=== PATIENT | female | born 1990 | race Caucasian/White ===

== ENCOUNTER → 2020-03-19 11:49 | Outpatient (ROUT) | payer SELFPAY ==
[2020-03-19 12:09] LABS: Add Manual Diff / Slide Review NO; Basophils Absolute Auto 0 /uL (0-100); Basophils Percent Auto 0.3 % (0-2); Eosinophils Absolute Auto 100 /uL (0-450); Eosinophils Percent Auto 0.9 % (2-4); Hematocrit 37.5 % (36-46); Hemoglobin 12.3 g/dL (12.0-16.0); Lymphocytes Absolute Auto 1400 /uL (1100-4500); Lymphocytes Percent Auto 24.3 % (25-40); Mean Corpuscular HGB Conc 32.8 % (30-36); Mean Corpuscular Hemoglobin 27.6 PG (26-34); Mean Corpuscular Volume 84.1 fL (80-100); Monocytes Absolute Auto 200 /uL (0-900); Neutrophils Absolute Auto 4000 /uL (1500-7000); Neutrophils Percent Auto 70.5 % (50-75); Platelet Count 225 X10^3/uL (150-400); Red Blood Cell Count 4.46 X10^6/uL (4.0-5.2); Red Cell Distribution Width 13.2 % (11.6-14.8); White Blood Cell Count 5.7 X10^3/uL (4.5-11.0)
[2020-03-19 13:27] LABS: Hepatitis B Surface Antigen NEGATIVE s/c (NEGATIVE); Rubella Antibody IgG 26.6 IU/mL (>15)
[2020-03-20 05:08] LABS: RPR Screen Non Reactive (Non Reactive)
== END ==
PROVIDERS: Visit Provider Nurse Practitioner Obstetrics & Gynecology
DX: Z34.90 Encounter for supervision of normal pregnancy, unspecified, unspecified trimester (principal); Z3A.14 14 weeks gestation of pregnancy
CPT/HCPCS: 80055

== ENCOUNTER → 2020-05-03 09:11 | Outpatient (CLI) | payer SELFPAY ==
--- NOTE | 2020-05-03 10:12 | DI.US.S_ITS ---
PROCEDURE: US OB >= 14 WEEKS FETUS INDICATIONS: ANATOMY OUTSIDE/PRIOR DATING DATA: Last menstrual period (LMP): 11/30/2019. LMP-based estimated date of delivery (ANTONIETA): 09/05/2020 . First dating scan (date and location): 05/03/2020 . Estimated date of delivery (ANTONIETA) from first dating scan: 09/22/2019 . TECHNIQUE: Real-time scanning was performed of the fetus, with image documentation and biometric measurements. Endovaginal scanning: No COMPARISON: None. FINDINGS: General: A single living intrauterine gestation is present. Presentation: Breech. Placenta: Placental position is anterior , without previa. Amniotic fluid index: 9.8 cm, normal range is 5-24 cm. heart rate: 149 beats per minute. Maternal cervical canal: 3.5 cm long. Normal lower limit is 2.5 cm. biometrics: Biparietal diameter: 20 weeks 1 day Head circumference: 20 weeks 2 days Abdominal circumference: 20 weeks 1 day Femur length: 19 weeks Estimated gestational age from initial scan: not applicable. Composite gestational age from present scan: 19 weeks 6 days Estimated weight and percentile: 380 g Measurement variability for biometric dating: +/- 7 days from 14 weeks to 15 weeks 6 days gestation, +/- 10 days from 16 weeks to 21 weeks 6 days gestation, +/- 2 weeks from 22 weeks to 27 weeks 6 days gestation, +/- 3 weeks for 28 weeks gestation or later. weight reference: 4500 g or EFW >90/95% is considered macrosomia or large for gestational age. EFW <10% is small for gestational age. EFW 5% or less is considered intra-uterine growth restriction. Anatomic survey: Neuro: Ventricles are non-dilated at less than 10 mm. Cisterna magna is normal at 3-11 mm. Cerebellum is normal in size and morphology. Nuchal skin fold: Normal at less than 6 mm between 14-21 weeks gestational age. Face: Nose and lips, facial profile are normal. Spine: No evidence for spina bifida. Heart: 4-chambered heart is present, with normal ventricular outflow tracts. Solitary intracardiac focus. Diaphragm: Diaphragm is intact. Stomach: Left-sided stomach is present. Kidneys: No hydronephrosis. Normal is less than 5 mm in 2nd trimester, less than 7 mm in 3rd trimester. Cord: 3-vessel cord has orthotopic insertion. Placental cord insertion site 1.8 cm from the placental edge. Bladder: Normal in size. Extremities: All 4 extremities identified. IMPRESSION: 1. 19 week 6 day single living IUP. 2. Echogenic intracardiac focus: 1.4-1.8 fold likelihood of Down syndrome. If isolated finding, consider aneuploidy screening with cell-free DNA. If aneuploidy screen is negative, no further evaluation needed. Anatomic survey otherwise is normal. 3. Marginal cord insertion site 1.8 cm from the placental margin. Dictated by: Ricardo Stone [facility] Interpreted: Charles Sawyer MD on 05/03/2020 at 12:59 Approved by: Charles Sawyer M.D. on 05/03/2020 at 14:08
== END ==
PROVIDERS: Referring Provider Nurse Practitioner Obstetrics & Gynecology; Visit Provider Nurse Practitioner Obstetrics & Gynecology
DX: Z36.89 Encounter for other specified antenatal screening (principal); Z3A.19 19 weeks gestation of pregnancy
CPT/HCPCS: 76811

== ENCOUNTER → 2020-06-29 18:20 | Outpatient (ROUT) | payer SELFPAY ==
[2020-06-29 21:18] LABS: Hematocrit 34.6 % (36-46); Hemoglobin 11.4 g/dL (12.0-16.0)
[2020-06-29 21:20] LABS: GTT (PREG) 1 Hour PP 50gm Dose 25 mg/dL (76-139)
== END ==
PROVIDERS: Visit Provider Nurse Practitioner Obstetrics & Gynecology
DX: Z34.90 Encounter for supervision of normal pregnancy, unspecified, unspecified trimester (principal); Z3A.26 26 weeks gestation of pregnancy
CPT/HCPCS: 82950; 85014; 85018; 86850; 86900; 86901

== ENCOUNTER → 2020-08-19 12:11 | Outpatient (ROUT) | payer SELFPAY | PROVIDERS: Visit Provider Nurse Practitioner Obstetrics & Gynecology | DX: Z34.90 Encounter for supervision of normal pregnancy, unspecified, unspecified trimester (principal); Z36.85 Encounter for antenatal screening for Streptococcus B; Z3A.36 36 weeks gestation of pregnancy | CPT/HCPCS: 87081; 87147 ==

== ENCOUNTER 2020-08-28 17:50 | Inpatient (IN) | payer SELFPAY ==
--- NOTE | 2020-08-28 17:57 | PM.OBHP.1 ---
OB HPI Date/Time Date of admission: 08/28/20 Date Patient Seen: 08/28/20 Time Patient Seen: 17:57 History of Present Condition Chief complaint: LABOR : 6 Para: 3 Estimated Date of Delivery: 09/15/20 Estimated Gestational Age (weeks): 37.3 Narrative: Linda Rico is a 29 year old female @ [id number] by 12 wk US who presents for evaluation of labor. Is GBS positive and has a history of rapid labors. Has been feeling irregular contractions all day, that strengthened about 1 hours ago and are 5-6 minutes apart. +FM, though less than normal. No vaginal bleeding or leaking of fluid. Uncomplicated care w/ CNM. Her and mother are present and supportive. History of Present care: good care, initiated at week # (12), number of visits (8) and pounds weight gain (18) Dating criteria: based on 1st trimester US only Ultrasounds: normal mid trimester US Obstetrical complications: none Medical complications: none Preadmission Labs Blood type: A (+) positive -: Antibody screen: negative, GBS status: positive, HBsAG: negative and RPR/VDLR: negative -: Rubella: immune HCAB: negative Cell-free DNA: Negative- male 1 hr GTT: 85 Prior (ies) History: 01/27/2012: NSVB @ 40wks, epidural, female, 6#13oz, no complications 02/11/2013: SAB @ 9wks 03/13/2016: NSVB @ 38wks, epidural, male, 5#9oz, no complications 12/12/2016: SAB @ 5wks 01/31/2018: NSVB@ 38wks, no medication, precip, male, 7#6oz, no complications Evaluation Evaluation Baseline heart rate: 145 Variability: Moderate (11-25) monitor accelerations: Present Monitor Decelerations: Absent Contraction Frequency (minutes): 3 Uterine Contraction Intensity: Moderate Category of Tracing: Reactive Status: Category l Comments: CE deferred d/t regular contraction pattern. [facility] Surgical History (Updated 08/28/20 @ 18:08 by Bailey Dorsey CNM) History of tonsillectomy Family History (Updated 08/28/20 @ 18:09 by Bailey Dorsey CNM) Mother Hypothyroid Social History (Updated 08/28/20 @ 18:09 by Bailey Dorsey CNM) marital status: number of children: 3 household members: spouse and children lives independently: Yes caregiver/support person: No housing: house education level: high school current occupational exposures/hazards: No Meds Home Medications and Allergies Allergies Allergy/AdvReac Type Severity Reaction Status Date / Time No Known Drug Allergies Allergy Verified 08/28/20 18:03 Review of Systems Review of Systems ROS: Yes unobtainable due to mental condition Exam Vital Signs (past 8 hours): BP 110/68mmHg, HR 95bpm, T 97.6F Temporal Chest Chest: normal inspection of the chest Resp Auscultation: clear to auscultation bilaterally Cardio Rate: regular rate Rhythm: regular rhythm Heart Sounds: S1 normal and S2 normal Presentation: vertex Objective Labs Result Diagrams: 08/28/20 18:10 Assessment and Plan Assessment and Plan Assessment and Plan narrative: A: Term multipara Early labor w/ hx of precipitous labor GBS prophylaxis indicated Cat I FHR P: Admit, routine labor orders w/ PCN for GBS prophylaxis. May switch to IA. Labor support PRN. Reassess in 4 hours or sooner.
[2020-08-28 18:33] LABS: Add Manual Diff / Slide Review NO; Basophils Absolute Auto 100 /uL (0-100); Basophils Percent Auto 0.6 % (0-2); Eosinophils Absolute Auto 0 /uL (0-450); Eosinophils Percent Auto 0.5 % (2-4); Hematocrit 37.5 % (36-46); Hemoglobin 12.3 g/dL (12.0-16.0); Lymphocytes Absolute Auto 2700 /uL (1100-4500); Lymphocytes Percent Auto 29.4 % (25-40); Mean Corpuscular HGB Conc 32.8 % (30-36); Mean Corpuscular Hemoglobin 27.8 PG (26-34); Mean Corpuscular Volume 84.7 fL (80-100); Monocytes Absolute Auto 500 /uL (0-900); Monocytes Percent Auto 5.5 % (3-14); Neutrophils Absolute Auto 6000 /uL (1500-7000); Platelet Count 196 X10^3/uL (150-400); Red Blood Cell Count 4.43 X10^6/uL (4.0-5.2); Red Cell Distribution Width 13.4 % (11.6-14.8); White Blood Cell Count 9.3 X10^3/uL (4.5-11.0)
[2020-08-28] MEDS: PENICILLIN G POTASSIUM 5,000,000 UNIT in DEXTROSE 5% IN WATER 250 ML IV (18:45)
[2020-08-28 19:21] LABS: COVID19 - ADMIT (NP swab/PCR) Negative (Negative)
[2020-08-28 21:07] VITALS: BP 101/55
[2020-08-28] MEDS: PENICILLIN G POTASSIUM 3,000,000 UNIT/50 ML FROZ.PIGGY 100 UNIT IV (22:50)
[2020-08-29] MEDS: PENICILLIN G POTASSIUM 3,000,000 UNIT/50 ML FROZ.PIGGY 100 UNIT IV ×2 (03:10→07:28)
--- NOTE | 2020-08-29 05:22 | PM.OBPNLAB ---
Date/Time Date Patient Seen: 08/29/20 Time Patient Seen: 02:05 Pain Control Comments: Laboring well without medication. Now adequately treated for GBS prophylaxis. Agreeable to AROM if no advanced dilation. VS: BP 103/60mmHg, HR 89bpm, T 36.4C Temporal Pelvic Exam Dilation (cm): 4 Effacement (%): 80 station: -1 Amniotic membrane status: Ruptured (AROM) Comments: clear fluid Contractions Contractions on admission: regular Monitor mode: External Contraction frequency (min): 4 Contraction duration (min): 1 Contraction pattern: Regular Contraction intensity: Moderate Status status: Category l Heart Rate Baseline: 135 Comments: FHR remains reassuring by IA Assessment and Plan Assessment: active labor Plan: continuous present management Comments: Continue intermittent auscultation. Labor support, PRN. Reassess in 4 hours or sooner, PRN.
--- NOTE | 2020-08-29 05:27 | PM.OBPNLAB ---
Date/Time Date Patient Seen: 08/29/20 Time Patient Seen: 05:20 Pain Control Comments: Linda continues to labor well without medication. Has tried the tub and CUB, now feeling spontaneous urge to push. Pushed spontaneously through 3 contractions prior to exam. Pelvic Exam Dilation (cm): 5 Effacement (%): 80 station: 0 Amniotic membrane status: Ruptured (AROM) Comments: Continues to leak clear fluid Contractions Monitor mode: External Contraction frequency (min): 4 Contraction pattern: Regular Contraction intensity: Moderate Status Heart Rate Baseline: 135 Comments: FHR remains reassuring by IA Assessment and Plan Assessment: active labor Plan: begin patient augmentation Comments: Explained amount of cervix remaining and recommend she NOT push at this time. Recommend pitocin augmentation, per protocol #1, patient in agreement. Continue labor support. Reassess in 4 hours or sooner, PRN.
[2020-08-29] MEDS: OXYTOCIN PREMIX 30 UNIT/500 ML PLAST..BAG IV (06:09)
--- NOTE | 2020-08-29 08:22 | PM.OBPRVD ---
Labor & Delivery Delivery date: 08/29/20 Intrapartal Events: None Cervical ripening method: none Induction method: none Delivery augmentation: rupture of membranes and pitocin Delivery monitor: external FHT and external uterine Route of delivery: Episiotomy description: None L&D Laceration Description: None Estimated blood loss (mL): 100 Anesthesia Type: None (nitrous oxide) Narrative: Linda'manjinder labor progressed rapidly with pitocin augmentation, max dose of 5mu/min. Coaching to slow maternal pushing led to a NSVB of a vigorous baby boy in LEE position over an intact perineum. There was no nuchal cord and shoulders delivered easily without additional maneuvers. was placed on maternal abdomen for drying and skin to skin. Remaining 30 units of pitocin in 500mL LR was increased to 200mL/hr for AMTSL. At 60 seconds, the cord was double clamped by CNM and cut by FOB, followed by spontaneous, Schultze delivery of an apparently intact placenta, membranes and 3VC. F[place]ud was immediately firm and bleeding minimal. QBL 100mL. Both mother and baby stable and skin to skin as I left the room. Baby 1: Infant gender: Male Presentation: vertex Position: Right Occiput Anterior Placenta delivery description: Spontaneous Cord Vessel Description: 3 Vessels score (1 min): 8 score (5 min): 9 weight: 2.745 kg Plan for aftercare: Routine care
--- NOTE | 2020-08-29 09:11 | PM.OBDS.1 ---
Discharge Providers Provider Date of admission: 08/28/20 17:50 Discharge Date: 08/29/20 Consults: 08/30/20 08:17 Consult to [facility] Machine Operator Routine Comment: Discharge provider: Bailey Dorsey CNM Summary Hospital Course Date Patient Seen: 08/29/20 Time Patient Seen: 14:00 Diagnoses: Normal, vaginal (O80.0) Hospital Course: Patient is voiding, ambulating and independently and is eager for early discharge to home. Minimal pain well controlled w/ a single dose of Toradol. Tolerating a general diet. Bleeding is minimal w/ occasional gushes w/ , no clots. is present and supportive. Peripartum Data Infant Delivery Method: Natural Vaginal Laceration Description: None complications: none 1: Gender: Male Disposition of : home Discharge Diagnosis (1) Encounter for full-term uncomplicated delivery: Start Date: 08/29/20 Start Time: 08:01 Status: Acute Status at Discharge Cognitive/behavioral status at discharge: calm Functional status at discharge: independent ambulation Overall status at discharge: patient is progressing back to baseline Time Spent with Patient Time attestation: Total time spent providing and/or coordinating discharge services: Time spent: Less than 30 minutes Specific discharge activities: education Objective Labs Result Diagrams: 08/28/20 18:10 Labs: Laboratory Results - last 24 hr 08/28/20 08/28/20 08/28/20 18:10 18:10 18:10 WBC 9.3 RBC 4.43 Hgb 12.3 Hct 37.5 MCV 84.7 MCH 27.8 MCHC 32.8 RDW 13.4 Plt Count 196 Neut % (Auto) 64.0 Lymph % (Auto) 29.4 [place] % (Auto) 5.5 Eos % (Auto) 0.5 L Baso % (Auto) 0.6 Neut # (Auto) 6000 Lymph # (Auto) 2700 [place] # (Auto) 500 Eos # (Auto) 0 Baso # (Auto) 100 SARS-CoV-2 (PCR) Negative Blood Type A Positive Antibody Screen Negative Exam Vital Signs (past 8 hours): BP 96/55mmHg, HR 63bpm, T 37.2F Temporal Other: FF@ u-1, lochia light, no clots, perineu intact Discharge Plan Discharge Plan Patient Disposition: Home Discharge orders & Medications Prescriptions: New ibuprofen 600 mg Tablet 600 mg PO Q6HR PRN (Reason: Pain, Mild (1-3)) 14 Days Qty: 60 RF: 0 Follow up/Referrals: Bailey Dorsey CNM [Advanced Platform Worker] - (Follow-up 09/12/20 @ 2:45pm by Telehealth Follow-up 10/10/20 @ 11:00am in office) Diet/Activity/Treatments Diet: Regular Activity: pelvic rest x 6 weeks Skin/Wound/Dressing Care Report to your healthcare provider any signs of infection, such as:: chills, fever, increased pain, unusual drainage and unusual redness Visit Report/Discharge Packet Instructions: DI for Depression Stand Alone Forms: Discharge: Care
[2020-08-29] MEDS: KETOROLAC 30 MG/ML VIAL IV (09:55)
[2020-08-29 13:55] VITALS: BP 101/55; PULSE 63; RESP 16; TEMP 37.2
[2020-08-29] MEDS: LANOLIN OINT 7 GM 1 APPLIC TOP (15:31)
[2020-08-29] MEDS: DERMOPLAST SPRAY 20% 60 ML 1 SPRAY TOP (15:31)
[2020-08-29 15:33] VITALS: TEMP 36.9
[2020-08-29] MEDS: IBUPROFEN 600 MG TABLET PO (15:33)
== END 2020-08-29 16:15 | disposition home or self-care (01) | DRG 807 ==
PROVIDERS: Admitting Provider Nurse Practitioner Obstetrics & Gynecology; Referring Provider Nurse Practitioner Obstetrics & Gynecology; Visit Provider Nurse Practitioner Obstetrics & Gynecology
DX: O99.824 Streptococcus B carrier state complicating childbirth (principal); Z37.0 Single live birth; Z3A.37 37 weeks gestation of pregnancy; Z20.822 Contact with and (suspected) exposure to COVID-19
CPT/HCPCS: 36415; 59050; 85025; 86850; 86900; 86901; 87635; C9803; G0379; J1885; J2540; J2590

== ENCOUNTER 2020-11-27 07:15 | Emergency (ER) | payer SELFPAY ==
[2020-11-27] VITALS (11 sets, daily range): BP systolic 96–119; BP diastolic 55–76; PULSE 86–113; RESP 11–24; TEMP 36.1; O2SAT 97–100; BMI 18.8
--- NOTE | 2020-11-27 07:39 | DI.CT.S_ITS ---
PROCEDURE: CT ABDOMEN PELVIS W CON INDICATIONS: RLQ pain TECHNIQUE: After the administration of intravenous contrast, axial sections acquired from the lung bases to the pubic symphysis. Coronal and sagittal reformats were performed. For radiation dose reduction, the following was used: automated exposure control, adjustment of mA and/or kV according to patient size. COMPARISON: None. FINDINGS: Image quality: Excellent. Lung bases: Unremarkable. Heart: No significant findings. ABDOMEN: Liver: Unremarkable. Gallbladder: Unremarkable Biliary ducts: Unremarkable. Pancreas: Unremarkable. Spleen: Unremarkable. Adrenal Glands: Unremarkable. Kidneys and Ureters: Right superior pole simple cyst. Kidneys are otherwise unremarkable. Ureters are normal in course and caliber. Stomach and Bowel: Stomach is nondistended. Small bowel is unremarkable without evidence of obstruction. No focal wall thickening. The appendix is not definitely identified. No secondary signs of inflammation within the right lower quadrant to suggest appendicitis. Fluid is noted throughout the colon. The there is subtle fatty infiltration along the left colon. Peritoneum: Trace amount of simple pelvic free fluid.. No free air. Ventral Wall: No hernias. Abdominal Nodes: No retroperitoneal or mesenteric adenopathy by size criteria. Vessels: Aorta and inferior vena cava are normal in size. Prominence of the gonadal veins bilaterally measuring up to 8 millimeters on the left. There is prominent intra and periuterine vessels. PELVIS: Pelvic Organs: The uterus is slightly enlarged. Simple appearing ovarian follicles/cysts. The largest on the right measures up to 2.1 centimeters in greatest diameter. Bladder: Nondistended limiting evaluation. Pelvic Nodes: No enlarged lymph nodes. Miscellaneous: No hernias are seen. Bones: Unremarkable. IMPRESSION: Fluid-filled colon with inflammation surrounding the left colon concerning for colitis. Although the appendix is not definitely visualized on today's examination. No secondary signs of appendicitis. Small amount of simple fluid pelvis which may be physiologic. Multiple anterior uterine and periuterine vessels with enlargement of the gonadal veins and slight increased size of the uterus may be due to recent . Additional etiologies such as pelvic congestion syndrome not excluded. Consider further evaluation with pelvic ultrasound if clinically warranted. Dictated by: Parish Gonzalez D.O. on 11/27/2020 at 8:10 Approved by: Parish Gonzalez D.O. on 11/27/2020 at 8:22
--- NOTE | 2020-11-27 07:44 | ED.ABDPAIN ---
HPI - Abdominal Pain General Chief Complaint: Abdominal Pain Stated Complaint: Stomach pain/ vomitting Time Seen by Provider: 11/27/20 07:23 Source: patient Mode of arrival: Ambulatory Limitations: no limitations History of Present Illness HPI narrative: Patient is a 30-year-old female who presents with abdominal pain ongoing for last 2 days. She says it has sort of been all over but now is more in the right side. This morning she had an episode diarrhea and 1 of vomiting. She denies any back pain no fever or chills. She says it does get sharp at times. It is nonradiating. She had baby in August. She is formula feeding. Vaginal delivery no complications. Quality: sharp Radiation: none Migration to: RLQ Related Data Previous Rx's Medication Instructions Recorded ondansetron 4 mg disintegrating 4 mg PO Q8H PRN #10 tab 11/27/20 tablet Allergies Allergy/AdvReac Type Severity Reaction Status Date / Time No Known Drug Allergies Allergy Verified 08/28/20 18:03 Review of Systems Review of Systems Narrative: GENERAL: Denies chills, fatigue, malaise, fever, sweats, travel HEENT: Denies sinus pain, ear pain, sore throat, difficulty swallowing, neck pain RESPIRATORY: Denies dyspnea, cough, wheezing, hemoptysis, sputum. CARDIOVASCULAR: Denies chest pain, palpitations, orthopnea, edema GASTROINTESTINAL: See HPI : Denies dysuria, frequency, incontinence, hematuria, urinary retention, flank pain. MUSCULOSKELETAL: Denies weakness, joint pain, or bony pain SKIN: No rash, no erythema, no pruritus NEUROLOGIC: Denies weakness, dizziness, headache, numbness, change in speech, confusion PSYCHIATRIC: No concerning psychosocial issues. 12 point review of systems is negative except for those stated above and HPI Patient History Surgical History (Updated 08/28/20 @ 18:08 by Bailey Dorsey CNM) History of tonsillectomy Family History (Updated 08/28/20 @ 18:09 by Bailey Dorsey CNM) Mother Hypothyroid Social History (Updated 08/28/20 @ 18:09 by Bailey Dorsey CNM) marital status: number of children: 3 household members: spouse and children lives independently: Yes caregiver/support person: No housing: house education level: high school current occupational exposures/hazards: No Smoking Status: Never smoker Smoking Status: Never smoker alcohol intake frequency: a few times a month Substance Use Type: does not use Exam Initial Vital Signs Initial Vital Signs: Vital Signs Temperature 97 F L 11/27/20 07:22 Pulse Rate 113 H 11/27/20 07:22 Respiratory Rate 18 11/27/20 07:22 Blood Pressure 119/76 11/27/20 07:22 Pulse Oximetry 98 11/27/20 07:22 GENERAL: Well-appearing, well-nourished and in no acute distress. HEENT: Head atraumatic,EOMI, pupils reactive, face symmetric, moist mucous membranes CARDIOVASCULAR: Regular rate and rhythm without murmurs, rubs or gallops. RESPIRATORY: Breath sounds equal bilaterally, no wheezes rales or rhonchi. ABDOMEN: Soft, mild tenderness in right lower quadrant some tenderness in right upper quadrant no guarding or rebound no distention : No CVA tenderness EXTREMITIES: Normal range of motion, no clubbing or edema. Neurovascularly intact NEUROLOGICAL: Alert and oriented x4.Normal gait and speech. SKIN: Warm, dry, no laceration, no petechiae, no rashes or lesions. Course Orders Ordered: ED Orders 11/27/20 07:26 Complete Blood Count AUTO DIFF Stat Comprehensive Metabolic Panel Stat Lipase Stat 11/27/20 07:39 CT abdomen pelvis w con Stat Discontinued Medications Sodium Chloride (Normal Saline 0.9%) 1,000 mls @ 1,000 mls/hr IV CONT MARIA TERESA Last Infusion: 11/27/20 09:08 Dose: 0 mls/hr Documented by: Admin: 11/27/20 07:49 Dose: 1,000 mls/hr Documented by: ANTWON Ketorolac Tromethamine (Ketorolac 30 Mg/Ml Vial) 30 mg IV NOW ONE Stop: 11/27/20 07:40 Last Admin: 11/27/20 07:49 Dose: 30 mg Documented by: ANTWON Vital Signs Vital signs: Vital Signs - 8 hr 11/27/20 07:22 11/27/20 07:31 11/27/20 07:54 Temperature 97 F L Pulse Rate 113 H 100 H 93 H Respiratory Rate 18 24 21 Blood Pressure 119/76 100/62 Pulse Oximetry 98 99 99 11/27/20 08:00 11/27/20 08:33 11/27/20 09:00 Temperature Pulse Rate 93 H 106 H 95 H Respiratory Rate 16 17 15 Blood Pressure 96/55 L Pulse Oximetry 100 100 100 11/27/20 09:08 11/27/20 09:30 11/27/20 10:00 Temperature Pulse Rate 94 H 89 89 Respiratory Rate 16 16 17 Blood Pressure 99/63 101/61 Pulse Oximetry 100 98 98 11/27/20 10:04 11/27/20 10:30 Temperature Pulse Rate 92 H 86 Respiratory Rate 21 11 L Blood Pressure 102/58 L 101/60 Pulse Oximetry 99 97 MDM - Abdominal Pain Lab Data Result diagrams: 11/27/20 07:26 11/27/20 07:26 Labs: Lab Results 11/27/20 11/27/20 Range/Units 07:26 07:26 WBC 7.3 (4.5-11.0) X10^3/uL RBC 4.94 (4.0-5.2) X10^6/uL Hgb 13.3 (12.0-16.0) g/dL Hct 41.9 (36-46) % MCV 84.8 (80-100) fL MCH 27.0 (26-34) PG MCHC 31.8 (30-36) % RDW 14.0 (11.6-14.8) % Plt Count 287 (150-400) X10^3/uL Neut % (Auto) 61.8 (50-75) % Lymph % (Auto) 31.3 (25-40) % [place] % (Auto) 5.2 (3-14) % Eos % (Auto) 0.9 L (2-4) % Baso % (Auto) 0.8 (0-2) % Neut # (Auto) 4500 (6439-4607) /uL Lymph # (Auto) 2300 (6929-2300) /uL [place] # (Auto) 400 (0-900) /uL Eos # (Auto) 100 (0-450) /uL Baso # (Auto) 100 (0-100) /uL Sodium 141 (137-145) mmol/L Potassium 3.6 (3.4-5.1) mmol/L Chloride 103 (98-107) mmol/L Carbon Dioxide 27 (22-32) mmol/L BUN 17 (7-17) mg/dL Creatinine 0.79 (0.52-1.04) mg/dL Estimated GFR > 60.0 (>60) mL/min BUN/Creatinine Ratio 21.5 (6-22) Glucose 111 H (70-100) mg/dL Calcium 9.5 (8.4-10.2) mg/dL Total Bilirubin 0.5 (0.2-1.3) mg/dL AST 34 (14-36) IU/L ALT 28 (<35) IU/L Alkaline Phosphatase 73 (38-126) U/L Total Protein 7.7 (6.3-8.2) g/dL Albumin 4.8 (3.5-5.0) g/dL Globulin 2.9 (1.7-4.1) g/dL Albumin/Globulin Ratio 1.7 (1.0-2.8) Lipase 64 (23-300) U/L Point of care testing: Point of Care Testing Test Results Negative Urine Dip Bedside Urine Glucose Negative Bedside Urine Bilirubin - Negative Bedside Urine Ketone - Negative Urine Specific [place] 1.030 Bedside Urine Occult Blood - Negative Bedside Urine pH 5.5 Bedside Urine Protein - Negative Bedside Urine Urobilinogen - Negative Bedside Urine Nitrite - Negative Bedside Urine Leukocytes - Negative Esterase Imaging Data CT scan - abdomen/pelvis: Radiologist's Impression: PROCEDURE:? CT ABDOMEN PELVIS W CON ? INDICATIONS:? RLQ? pain ? TECHNIQUE:? After the administration of intravenous contrast, axial sections acquired from the lung bases to the pubic symphysis.? Coronal and sagittal reformats were performed.? For radiation dose reduction, the following was used:? automated exposure control, adjustment of mA and/or kV according to patient size.? ? COMPARISON:? None. ? FINDINGS:? Image quality:? Excellent.? ? Lung bases:? Unremarkable. Heart:? No significant findings. ? ABDOMEN: Liver:? Unremarkable.? ? Gallbladder:? Unremarkable Biliary ducts:? Unremarkable.? ? Pancreas:? Unremarkable.? ? Spleen:? Unremarkable.? ? Adrenal Glands:? Unremarkable.? ? Kidneys and Ureters:? Right superior pole simple cyst.? Kidneys are otherwise unremarkable.? Ureters are normal in course and caliber. ? Stomach and Bowel:? Stomach is nondistended.? Small bowel is unremarkable without evidence of obstruction.? No focal wall thickening.? The appendix is not definitely identified.? No secondary signs of inflammation within the right lower quadrant to suggest appendicitis.? Fluid is noted throughout the colon.? The there is subtle fatty infiltration along the left colon. ? Peritoneum:? Trace amount of simple pelvic free fluid..? No free air.? ? Ventral Wall: ? No hernias.? Abdominal Nodes:? No retroperitoneal or mesenteric adenopathy by size criteria.? Vessels:? Aorta and inferior vena cava are normal in size.? Prominence of the gonadal veins bilaterally measuring up to 8 millimeters on the left.? There is prominent intra and periuterine vessels.? ? PELVIS: Pelvic Organs:? The uterus is slightly enlarged.? Simple appearing ovarian follicles/cysts.? The largest on the right measures up to 2.1 centimeters in greatest diameter. Bladder:? Nondistended limiting evaluation. Pelvic Nodes: No enlarged lymph nodes.? Miscellaneous: No hernias are seen. ? ? ? Bones:? Unremarkable.? IMPRESSION:? ? Fluid-filled colon with inflammation surrounding the left colon concerning for colitis.? Although the appendix is not definitely visualized on today's examination.? No secondary signs of appendicitis. ? Small amount of simple fluid pelvis which may be physiologic. ? Multiple anterior uterine and periuterine vessels with enlargement of the gonadal veins and slight increased size of the uterus may be due to recent .? Additional etiologies such as pelvic congestion syndrome not excluded.? Consider further evaluation with pelvic ultrasound if clinically warranted.? ? ? Dictated by: Parish Gonzalez D.O. on 11/27/2020 at 8:10 ? ? MDM Narrative Medical decision making narrative: Patient is having abdominal discomfort on the right side with but multiple other places as well. She did have 1 episode of diarrhea and 1 episode of vomiting today but pain and comes have been ongoing for about 2 days. Blood work is overall reassuring. CT shows colitis and no evidence of appendicitis. CT is also confirmatory a recent . We also did discuss the possible ovarian cyst however signs and symptoms not consistent with ovarian etiology. Certainly no concern for ovarian torsion at this time pain is really upper in her [place] point area. At this time she is feeling but better after medication. Recommend supportive care at this time and return if needed. Discharge Plan Departure Patient Disposition: Home Clinical Impression: Gastroenteritis Instructions: DI for Viral Gastroenteritis -- Adult Activity Restrictions/Additional Instructions: *You have been diagnosed with gastroenteritis *What to do: At this time increase fluid intake with Gatorade or Gatorade like product. May eat as tolerated. *Continue to take medications as directed Zofran 4 mg every 8 hours if needed for nausea or vomiting *Follow up with your primary care provider in 2-3 days *Return to ER if you should have persistent vomiting increasing abdominal or any new, worsening or concerning symptoms Prescriptions: New ondansetron 4 mg tablet,disintegrating 4 mg PO Q8H PRN (Reason: nausea and vomiting) Qty: 10 RF: 0
[2020-11-27 07:45] LABS: Add Manual Diff / Slide Review NO; Basophils Absolute Auto 100 /uL (0-100); Basophils Percent Auto 0.8 % (0-2); Eosinophils Absolute Auto 100 /uL (0-450); Eosinophils Percent Auto 0.9 % (2-4); Hematocrit 41.9 % (36-46); Hemoglobin 13.3 g/dL (12.0-16.0); Lymphocytes Absolute Auto 2300 /uL (1100-4500); Lymphocytes Percent Auto 31.3 % (25-40); Mean Corpuscular HGB Conc 31.8 % (30-36); Mean Corpuscular Volume 84.8 fL (80-100); Monocytes Absolute Auto 400 /uL (0-900); Monocytes Percent Auto 5.2 % (3-14); Neutrophils Absolute Auto 4500 /uL (1500-7000); Neutrophils Percent Auto 61.8 % (50-75); Platelet Count 287 X10^3/uL (150-400); Red Blood Cell Count 4.94 X10^6/uL (4.0-5.2); White Blood Cell Count 7.3 X10^3/uL (4.5-11.0)
[2020-11-27] MEDS: KETOROLAC 30 MG/ML VIAL IV (07:49)
[2020-11-27] MEDS: SODIUM CHLORIDE 0.9% 1,000 ML 1000 ML IV (07:49)
[2020-11-27 08:01] LABS: Alanine Aminotransferase 28 IU/L (<35); Albumin 4.8 g/dL (3.5-5.0); Albumin Globulin Ratio 1.7 (1.0-2.8); Alkaline Phosphatase 73 U/L (38-126); Aspartate Aminotransferase 34 IU/L (14-36); BUN Creatinine Ratio 21.5 (6-22); Bilirubin Total 0.5 mg/dL (0.2-1.3); Blood Urea Nitrogen 17 mg/dL (7-17); Calcium 9.5 mg/dL (8.4-10.2); Carbon Dioxide 27 mmol/L (22-32); Chloride 103 mmol/L (98-107); Estimated Glomerular Filt Rate > 60.0 mL/min (>60); Globulin 2.9 g/dL (1.7-4.1); Glucose 111 mg/dL (70-100); HEMOLYSIS < 15 (0-50); Lipase 64 U/L (23-300); Potassium 3.6 mmol/L (3.4-5.1); Sodium 141 mmol/L (137-145); Total Protein 7.7 g/dL (6.3-8.2)
== END 2020-11-27 10:42 | disposition home or self-care (01) ==
PROVIDERS: Emergency Provider Emergency Medicine
DX: A08.4 Viral intestinal infection, unspecified (principal)
CPT/HCPCS: 36415; 74177; 80053; 81003; 81025; 83690; 85025; 96361; 96374; 99284; J1885; Q9967